=== PATIENT | male | born 1955 | race Caucasian/White ===

== ENCOUNTER 2018-12-18 20:00 | Emergency (ER) | payer OTHER, SELFPAY ==
[2018-12-18 20:00] VITALS: BP 170/120; PULSE 92; RESP 15; TEMP 36.8; O2SAT 98; BMI 22.2
--- NOTE | 2018-12-18 20:05 | EKG12_ITS ---
Test Reason : CP Blood Pressure : / mmHG Vent. Rate : 089 BPM Atrial Rate : 089 BPM P-R Int : 170 ms QRS Dur : 096 ms QT Int : 362 ms P-R-T Axes : 045 -49 031 degrees QTc Int : 440 ms Suspect unspecified pacemaker failure Normal sinus rhythm Possible Left atrial enlargement Left anterior fascicular block Left ventricular hypertrophy Abnormal ECG Confirmed by JENNIFER SNYDER, LISA ([id number]), associate entertainment editor YI CALIXTO ([id number]) on 12/25/2018 4:07:25 PM Referred By: SHELLEY Confirmed By:LISA RODRIGUEZ MD
--- NOTE | 2018-12-18 20:21 | RAD_ITS ---
STUDY: X-RAY CHEST REASON FOR EXAM: Male, 63 years old. Chest pain TECHNIQUE: Single AP portable view of the chest. COMPARISON: None. FINDINGS: youth nutritional monitor leads are present. The lungs are clear and expanded. There is no demonstrated pleural abnormality. Normal size heart. Normal mediastinum and gemini. Normal visualized pulmonary arteries. Normal visualized aortic arch and descending thoracic aorta. Normal visualized thoracic spine. Normal visualized ribs, clavicles, and shoulders. There is no demonstrated abnormality of the visualized soft tissue structures of the upper abdomen. RAD/Chest 1 View (Portable) IMPRESSION: youth nutritional monitor leads are seen. No acute cardiopulmonary disease process is noted. Electronically Signed: Zbigniew Willis MD at 20:53 EDT , Service support ,
[2018-12-18 20:30] LABS: Absolute Lymphocyte Count 1.75 X10^3/ul (0.83-4.51); Absolute Neutrophil Count 4.1 X10^3/uL (2.0-7.7); Basophil# 0.04 X10^3/uL; Basophil% 0.6 % (0-1); Eosinophil# 0.24 X10^3/uL; Eosinophils% 3.6 % (0-5); Hematocrit 41.6 % (40-54); Hemoglobin 14.2 g/dl (13.0-16.5); Lymphocyte # 1.75 X10^3/ul (4.0); Mean Corp Hgb Conc 34.1 g/gl (32-36); Mean Corpuscular Volume 93.7 fL (80-94); Mean Platelet Vol. 9.3 fl (6.2-12.0); Monocyte# 0.57 X10^3/uL; Monocyte% 8.5 % (0-10); Neutrophil # 4.12 X10^3/uL (2.7-7.7); Neutrophil % 61.3 % (47-70); Platelet Count 249 K/mm3 (150-450); RBC Distribution Width CV 12.4 % (11.6-14.6); RBC Distribution Width SD 41.9 fl (35.1-43.9); Red Blood Count 4.44 M/mm3 (4.6-6.2); White Blood Count 6.7 K/mm3 (4.4-11.0)
[2018-12-18 20:32] LABS: POSITIVE COUNT NO; POSITIVE DIFFERENTIAL NO; POSITIVE MORPHOLOGY NO
[2018-12-18 20:39] VITALS: BP 156/108; PULSE 84; RESP 16; O2SAT 98
[2018-12-18 20:49] LABS: Anion Gap 8 (5-15); BUN 10 mg/dL (7-18); BUN/Creat Ratio 9.6 RATIO (10-20); Calcium,Total 9.4 mg/dL (8.5-10.1); Chloride 103 mmol/L (98-107); Creatinine, Serum 1.04 mg/dL (0.70-1.30); EST Glomerular Filtration Rate 77 mL/min (>60); Est Glom Filt Rate - Afr Amer 93 mL/min (>60); Estimated Creatinine Clearance 74.18 ml/min; Glucose 98 mg/dL (74-106); Potassium 3.2 mmol/L (3.5-5.1); Sodium Level 142 mmol/L (136-145)
[2018-12-18 21:21] VITALS: BP 146/99; PULSE 82; RESP 16; O2SAT 96
--- NOTE | 2018-12-18 22:03 | ED.VIS.GEN ---
History of Present Illness Chief Complaint: Chest Pain Informant: Patient Onset: Days - Onset 2-3 days ago Context: Sudden Onset Timing: Intermittent - Lasting several to many hours Quality: Sharp left-sided chest pain radiated to left shoulder tonight Location: Left side Current Severity: Mild Maximum Severity: Moderate Worsened by: Cannot attribute to anything Relieved by: Nothing Associated Symptoms: Tonight dyspnea walking up steps with no change in chest discomfort Narrative: Patient is a 63-year-old male with no sniffing a past medical history who presents with left-sided chest pain for the past 2-3 days. Onset has occurred mainly at rest. This evening the pain was stronger and he describes shortness of breath going up steps. He denied nausea or diaphoresis. He is not a smoker. He denies history of PE or DVT. He denies leg pain, swelling discoloration he denies hematemesis, melena hematochezia. He reports chronic xiphoid discomfort since struck with a football in fourth grade. He denies URI symptoms. He presently is on no medication. He states his blood pressure is normally 110-120 systolic. Prior similar symptoms: No Recent Illness/Hospitalization: No - Past Medical History (1) No significant past medical history Status: Acute Past Medical History - Allergies and Home Meds Allergies/Adverse Reactions: Allergies No Known Allergies Allergy (Verified 12/18/18 20:04) Primary Care Physician: Care Physician,No Primary [Primary Care Provider] - Prior records reviewed: Yes Surgical History: no surgical history Lives: Spouse/ Significant Other Smoking Status: Never smoker Alcohol: None Drugs: None Review of Systems General: Denies: Chills, Fever, Sweats Eyes: Denies: Visual changes - bilaterally, Blurred Vision - bilaterally, Diplopia ENT: Denies: Rhinorrhea, Sore throat Cardiovascular: Reports: Chest pain. Denies: Palpitations Respiratory: Reports: Dyspnea. Denies: Cough, Dyspnea on exertion, Orthopnea, Paroxysmal nocturnal dyspnea Gastrointestinal: Denies: Abdominal pain, Nausea, Vomiting, Diarrhea, Melena, Hematochezia Genitourinary: Denies: Dysuria, Hematuria, Frequency Musculoskeletal: Reports: Back pain - Patient reports pain went through his back this evening.. Denies: Myalgias, Arthralgias, Neck pain, Swelling, Extremity Pain Skin: Denies: Rash, Wounds Neurological: Denies: Headache, Weakness, Numbness Endocrine: Denies: Polyuria, Polydipsia Hematologic: Denies: Easy bruising, Easy bleeding Allergy: Denies: Uticaria Physical Exam Vital Signs/Narrative: Vital Signs Temp Pulse Resp BP Pulse Ox 12/18/18 21:21 82 16 146/99 H 96 12/18/18 20:39 84 16 156/108 H 98 12/18/18 20:00 98.2 F 92 15 170/120 H 98 Inital Vital Signs reviewed: Yes - Most recent blood pressure 146/99 General: Well nourished, Well developed, No Acute Distress Head: Normocephalic, Atraumatic Eyes: Perrl, EOMI. Negative for: Pale conjunctiva, Scleral icterus, - ENT: Moist mucous membranes, No rhinorrhea Neck: Supple, Nontender, No lymphadenopathy, No JVD, - Cardiovascular: Regular rate, Regular rhythm, No murmurs, Normal S1, Normal S2 Respiratory: No distress, CTA bilaterally, Chest tenderness - There is tenderness inferior to the left scapula that reproduces his discomfort. The pain is not exactly like the discomfort he has had. Abdomen: Soft, Nontender, Nondistended, Normal bowel sounds, No masses Back: Nontender, Normal Inspection. Negative for: CVA tenderness, Spinal tenderness Extremities: Nontender, No edema, - - There is no asymmetry, swelling, discoloration, leg vein distention, palpable cords or tenderness along the distribution of the deep venous system. Skin: Normal color, No rash Neurological: Alert, Oriented x3, Cranial nerves II-XII grossly intact, Normal Strength, Normal Sensation Psychological: Normal affect, Normal Mood Diagnostic/Tx/Re-eval Chest X-Ray - ED: 1 View, Read by ED Physician, Normal, Heart, Lungs, Mediastinum, Bony Structures, No Acute Disease Impressions Chest X-Ray 12/18/18 20:21 IMPRESSION: alarm security or surveillance monitor leads are seen. No acute cardiopulmonary disease process is noted. Electronically Signed: Zbigniew Willis MD at 20:53 EDT , Service support , 12/18/18 20:21 Chest 1 View (Portable) [RAD] Stat Laboratory Results 12/18/18 12/18/18 20:14 20:14 WBC 6.7 RBC 4.44 L Hgb 14.2 Hct 41.6 MCV 93.7 MCH 32.0 MCHC 34.1 RDW 12.4 RDW Differential 41.9 Plt Count 249 MPV 9.3 Immature Gran % (Auto) 0.000 Neut % (Auto) 61.3 Lymph % (Auto) 26.0 Jack % (Auto) 8.5 Eos % (Auto) 3.6 Baso % (Auto) 0.6 Absolute Neuts (auto) 4.1 Absolute Lymphs (auto) 1.75 Total Counted Not Reportable Sodium 142 Potassium 3.2 L Chloride 103 Carbon Dioxide 31.0 Anion Gap 8 BUN 10 Creatinine 1.04 Estim Creat Clear Calc 74.18 Est GFR (MDRD) Af Amer 93 Est GFR (MDRD) Non-Af 77 BUN/Creatinine Ratio 9.6 L Glucose 98 Calcium 9.4 Troponin I < 0.015 - Medical Decision Making With history of chest pain and reported shortness of breath this evening will obtain EKG, chest x-ray and blood work to evaluate his symptoms. This may represent cardiac versus noncardiac and specifically pulmonary or GI if not cardiac. Patient is not PERC negative since he is greater than age of 52 however he denies pleuritic pain and has no risk factors for PE or DVT. Since patient's EKG is normal and troponin is normal with hours of pain 24 and 48 hours ago and 8 hours of pain today it is my opinion this is not represent cardiac chest pain. Since his heart score is less than 3 based on recent L LSA article no incident of angina, cardiac catheterization, PA or for 30 days. Therefore will discharge to home ED Disposition - Plan for ED Patient: Disposition: Home or Assisted Living Diagnosis: Left-sided chest pain, Hypertension Instructions: ED Chest Pain NonCardiac, ED Hypertension Poss Referrals: Care Physician,No Primary [Primary Care Provider] - Lida Baugh DO [STAFF PHYSICIAN] - 3-5 Days Additional Instructions: Since she do not have a physician who referred to Dr. Lida Baugh for follow-up
[2018-12-18 22:25] VITALS: BP 141/101; PULSE 78; RESP 16; O2SAT 96
== END 2018-12-18 22:26 | disposition home or self-care (01) ==
PROVIDERS: Emergency Provider Emergency Medicine
DX: R07.9 Chest pain, unspecified (principal); I10 Essential (primary) hypertension
CPT/HCPCS: 71045; 80048; 84484; 85025; 93005; 99284; A4216